=== PATIENT | female | born 1940 | race Caucasian/White ===

== ENCOUNTER 2016-12-07 18:39 | Emergency (ER) | payer OTHER, MEDICARE ==
[~2016-12-07] VITALS: Ht 152.4 cm; Wt 50.3 kg
[~2016-12-07 18:39] MED LIST: ANTIBIOTIC O500 U/GM TOP; ASPIRIN CHILDRE81 MG PO; BENEFIBER1 POW PO; BISCOLAX10 MG PR; CALCIUM + D 6001 TAB PO; CEPHALEXIN500 MG PO; DEPAKOTE SPRIN125 M1 PO; ENSURE PLUS 24240 ML PO; LEVOTHYROXINE0.1 M1 PO; MAPAP ARTHRITI650 MG PO; MULTIVITAMIN1 TAB PO; OLANZAPINE2.5 MG PO; OLANZAPINE5 MG PO; OMEPRAZOLE20 M2 PO; PRAVACHOL40 M1 PO; PROPRANOLOL HCL40 M1 PO; SENNA CONCENTR8.6 MG PO; VITAMIN D32000 UNIT PO; [UNRECOGNIZED DRUG - OTHER] PO; [UNRECOGNIZED DRUG - REMARK] TOP
[2016-12-07] MEDS ORDERED: PAIN RELIEF325 MG PO (20:06)
[2016-12-07] MEDS ORDERED: MULTI-DAY VITA1 EACH PO (20:06)
[2016-12-07] MEDS ORDERED: ASPIRIN EC81 M1 PO (20:07)
[2016-12-07] MEDS ORDERED: ANTACID LIQUID355 ML PO (20:07)
[2016-12-07] MEDS ORDERED: BACITRACIN28.4 GM TOP (20:08)
[2016-12-07] MEDS ORDERED: BENEFIBER144 GM PO (20:08)
[2016-12-07] MEDS ORDERED: DEPAKOTE SPRIN125 M1 PO (20:09)
[2016-12-07] MEDS ORDERED: LEVOTHYROXINE100 MC1 PO (20:09)
[2016-12-07] MEDS ORDERED: MILK OF MA400 MG/52 PO (20:10)
[2016-12-07] MEDS ORDERED: VITAMIN D2000 UNI1 PO (20:12)
[2016-12-07] MEDS ORDERED: ZEASORB POWDER71 GM TOP (20:12)
--- NOTE | 2016-12-07 20:37 | ED GENERAL ADULT ---
See Addendum History of Present Illness General Chief Complaint: General Adult Stated Complaint: PT HIGH BLOOD PRESSURE, FALLING Source: patient Exam Limitations: no limitations Vital Signs & Intake/Output Vital Signs & Intake/Output Vital Signs Date Time Temp Pulse Resp B/P B/P Pulse O2 O2 Flow FiO2 Mean Ox Delivery Rate 12/08 206 97.9 74 18 151/69 99 Room Air 12/08 0205 97.9 74 20 151/69 12/076 138/80 12/07 2058 97.5 83 18 188/86 97 Room Air 12/07 1843 98.0 87 20 158/88 98 Room Air ED Intake and Output 12/08 0000 12/07 1200 Intake Total Output Total Balance Patient 111 lb Weight Weight Estimated Measurement Method Allergies Coded Allergies: Quinolones (UNKNOWN 02/03/16) benztropine (UNKNOWN 02/03/16) haloperidol (From HALDOL) (UNKNOWN 02/03/16) Reconcile Medications Acetaminophen (Pain Relief) 325 MG TABLET 2 TAB PO Q6H PRN PAIN/TEMP>100.5 ( Reported) Aspirin (Ecotrin*) 81 MG TABLET.DR 1 TAB PO DAILY HEART/BLOOD (Reported) Bacitracin 500 UNIT/GRAM OINT...G. 1 CANDY TOP PRN SKIN (Reported) apply to affected area(s) Cholecalciferol (Vitamin D3) (Vitamin D3) 2,000 UNIT CAPSULE 1 CAP PO DAILY SUPPLEMENT (Reported) Cholecalciferol (Vitamin D3) (Vitamin D) 2,000 UNIT TABLET 1 TAB PO DAILY SUPPLEMENT (Reported) Divalproex Sodium (Depakote Sprinkle) 125 MG CAP.SPRINK 4 CAP PO BID UNKNOWN (Reported) Levothyroxine Sodium 100 MCG TABLET 1 TAB PO DAILY THYROID (Reported) Mag Hydrox/Al Hydrox/Simeth (Antacid Liquid) (Unknown Strength) ORAL.SUSP ( Unknown Dose) PO Q4H PRN GI UPSET (Reported) Magnesium Hydroxide (Milk Of Magnesia) 400 MG/5 ML ORAL.SUSP 30 ML PO PRN GI (Reported) Multivitamin (Multi-Day Vitamins) 1 EACH TABLET 1 TAB PO DAILY SUPPLEMENT ( Reported) Nitrofurantoin Monohyd/M-Cryst (Macrobid 100 MG Capsule) 100 MG CAPSULE 1 CAP PO BID URINE INFECTION with food Omeprazole 20 MG CAPSULE.DR 1 CAP PO QAM GI (Reported) Pravastatin Sodium (Pravachol) 40 MG TABLET 1 TAB PO 1500 CHOLESTEROL ( Reported) Propranolol HCl 40 MG TABLET 1 TAB PO BID BP (Reported) Sennosides (Senna Concentrate) 8.6 MG TABLET 2 TAB PO DAILY GI (Reported) Talc/Cellulos/Chloroxy/Aldioxa (Zeasorb Powder) (Unknown Strength) POWDER 1 CANDY TOP BID FEET (Reported) Wheat Dextrin (Benefiber) (Unknown Strength) POWDER (Unknown Dose) PO AD GI ( Reported) Triage Note: 76 YO FEMALE TO TRIAGE FROM SENIOR CARE WITH MANAGER OF EMPLOYEE RELATIONS. PT HX OF MR AND NONVERBAL AT BASELINE. PER CONSULTATION FORM THAT WAS BROUGHT WITH PT IT WAS HYPERTENSIVE AND CLAMMY AND COLLPASED 3 TIMES TODAY WHILE WALKING. STAFF MEMBER WITH PT "JUST CLOCKED ON" SO IF UNSURE OF WHY PT WAS BROUGHT IN. BP 158/88 IN TRIAGE. STAFF MEMBER ALSO STATES "THEY THINK SHE MIGHT HAVE A UTI" PT APPEARS COMOFRTBLE AND NOT IN ANY PAIN AT THIS TIME. Triage Nurses Notes Reviewed? yes Onset: Gradual Duration: day(s): Timing: single episode today Injury Environment: home Severity: mild Modifying Factors: Improves With: rest. 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 Her aide states, "The nurse thinks it might be a urinary tract infection." She has no cough, phlegm, diarrhea, nauesa, vomiting. She is otherwise well. Past History Travel History Traveled to [place] past 21 day No Medical History Any Pertinent Medical History? see below for history Neurological: PROFOUND DEVELOPMENTALLY DISABLED EENT: cataracts, glaucoma Cardiovascular: hypertension, hyperlipidemia Respiratory: NONE Gastrointestinal: NONE Hepatic: NONE Renal: NONE Musculoskeletal: NONE Psychiatric: schizo affective disorder Endocrine: NONE Blood Disorders: NONE Surgical History Surgical History: unobtainable Psychosocial History What is your primary language Swedish Tobacco Use: Never used Family History Hx Contributory? No Review of Systems Review of Systems Constitutional: Reports: no symptoms. EENTM: Reports: no symptoms. Respiratory: Reports: no symptoms. Cardiovascular: Reports: no symptoms. GI: Reports: no symptoms. Genitourinary: Reports: no symptoms. Musculoskeletal: Reports: no symptoms. Skin: Reports: no symptoms. Neurological/Psychological: Reports: no symptoms. Hematologic/Endocrine: Reports: no symptoms. Immunologic/Allergic: Reports: no symptoms. All Other Systems: Reviewed and Negative Physical Exam Physical Exam General Appearance: well developed/nourished, no apparent distress Head: atraumatic, normal appearance Eyes: Bilateral: normal appearance, PERRL, EOMI. Ears, Nose, Throat: normal pharynx, normal ENT inspection Neck: normal inspection, supple, full range of motion Respiratory: normal breath sounds, chest non-tender, no respiratory distress, quiet respiration, lungs clear Cardiovascular: regular rate/rhythm Gastrointestinal: normal bowel sounds, soft, non-tender, no organomegaly Back: normal inspection Extremities: normal inspection, normal capillary refill, normal range of motion, no edema Neurologic/Psych: no motor/sensory deficits, awake, alert Skin: intact, normal color, warm/dry Core Measures ACS in differential dx? No CVA/TIA Diagnosis: No Severe Sepsis Present: No Septic Shock Present: No Progress Differential Diagnoses I considered the following diagnoses in my evaluation of the patient: pneumonia, bronchitis, uti, dehydration vs other. Plan of Care: Orders Procedure Date/time Status Regular Diet 12/08 B Active EKG 12/08 040 Active Saline Lock 12/[address] in observation 12/07 225 Active Misc Message 12/07 225 Active ED Holding Orders 12/07 225 Active Patient Data 12/07 225 Active Vital Signs 12/07 225 Active Code Status 12/07 225 Active Add-on Test (ER Only) 12/08 2247 Active BASIC METABOLIC PANEL 12/07 224 Complete CULTURE,URINE 12/07 2140 Active DEPAKOTE LEVEL 12/07 2109 Complete URINALYSIS 12/08 2047 Complete TROPONIN LEVEL 12/08 2047 Complete COMPREHENSIVE METABOLIC PANEL 12/08 2047 Complete CBC WITHOUT DIFFERENTIAL 12/08 2047 Complete Current Medications Sig/Loreta Start time Last Medication Dose Stop Time Status Admin Divalproex Sodium 500 MG BID 12/08 005 UNVr 12/08 (Depakote) 0205 Propranolol HCl 40 MG BID 12/08 005 UNVr 12/08 (Inderal 40 MG 0205 Tablet) Nitrofurantoin 50 MG Q6 12/07 2359 UNVr 12/07 (Macrodantin 50MG 2349 Cap) Laboratory Tests 12/08/16 0050: Anion Gap 6, Estimated GFR > 60, BUN/Creatinine Ratio 30.0 H, Glucose 75, Calcium 7.6 L 12/07/162139: Urine Color YEL, Urine Clarity CLEAR, Urine pH 6.5, Ur Specific [place] 1.010, Urine Protein NEG, Urine Ketones TRACE H, Urine Nitrite NEG, Urine Bilirubin NEG, Urine Urobilinogen 0.2, Ur Leukocyte Esterase TRACE H, Ur Microscopic SEDIMENT EXAMINED, Urine RBC 1-3, Urine WBC 5-10 H, Ur Epithelial Cells FEW, Urine Hemoglobin NEG, Urine Glucose NEG 12/07/162109: Anion Gap 7, Estimated GFR > 60, BUN/Creatinine Ratio 38.0 H, Glucose 87, Calcium 9.1, Total Bilirubin 0.5, AST 26, ALT 31, Alkaline Phosphatase 54, Troponin I < 0.01, Total Protein 6.6, Albumin 4.0, Globulin 2.6, Albumin/ Globulin Ratio 1.5, CBC w Diff NO MAN DIFF REQ, RBC 4.76, MCV 87.4, MCH 29.2, RDW 13.7, MPV 8.4, Gran % 46.7, Lymphocytes % 38.9, Monocytes % 13.2 H, Eosinophils % 0.9, Basophils % 0.3, Absolute Granulocytes 5.7, Absolute Lymphocytes 4.7 H, Absolute Monocytes 1.6 H, Absolute Eosinophils 0.1, Absolute Basophils 0, PUBS MCHC 33.4, Valproic Acid 84.4 Microbiology 12/08 2139 URINE ROUT: Urine Culture - RECD Initial ED EKG: normal axis, normal intervals, normal p-waves, normal QRS complex, normal sinus rhythm Departure Departure Disposition: HOME OR SELF CARE Condition: Stable Clinical Impression Primary Impression: Hyponatremia Secondary Impressions: Dehydration, UTI (urinary tract infection) Referrals: EVERETTE ATWOOD MD (PCP/Family) Departure Forms: Customer Survey General Discharge Information Prescriptions: Current Visit Scripts Nitrofurantoin Monohyd/M-Cryst (Macrobid 100 MG Capsule) 1 CAP PO BID #10 CAP with food Critical Care Note Critical Care Note Critical Care Time: non-applicable ED Attending Observation Initial Observation Note: I have seen and personally examined EMILY PANTOJA on 12/07/16 at 2308. I agree with the current emergency department documentation. The disposition (admission or discharge) is uncertain at this time, she needs a period of observation for the following reason(s): pt has hyponatremia with a sodium of 124. pt has history of decreased oral intake. WIll give 2 liters iv fluid and re-evaluate, recheck lytes. Also will start macrobid for possible mild uti. The ED Nurse caring for this patient has been personally informed as to what the patient is being observed for. Observation Discharge: I have reevaluated EMILY PANTOJA on 12/08/16 at 0400. The patient is: ([x]): Stable for discharge (): To be admitted to Nursing Floor (): To be placed in Observation on Nursing Floor (): For transfer to other facility The patient was being observed for hyponatremia/dehydration.... pt received 2 liters NS. As a result of that observation, I have determined her sodium improved from 124 to 131. Pt safe for discharge with close follow up by PMD. discussed increasing oral intake. She will also complete course of macrobid for mild UTI.
[2016-12-07 21:19] LABS: ABSOLUTE BASOPHIL COUNT 0 /CUMM (0.0-0.2); ABSOLUTE EOSINOPHIL COUNT 0.1 /CUMM (0.0-0.7); ABSOLUTE GRANULOCYTE CT 5.7 /CUMM (1.4-6.5); ABSOLUTE LYMPH COUNT 4.7 /CUMM (1.2-3.4); ABSOLUTE MONOCYTE COUNT 1.6 /CUMM (0.10-0.60); BASOPHIL % 0.3 % (0.0-2.0); EOSINOPHIL % 0.9 % (0-5); HEMATOCRIT 41.7 % (37-47); MEAN CORPUSCULAR HGB 29.2 PG (27.0-31.0); MEAN CORPUSCULAR HGB CONC 33.4 G/DL (33.0-37.0); MEAN CORPUSCULAR VOLUME 87.4 FL (81.0-99.0); MEAN PLATELET VOLUME 8.4 FL (7.4-10.4); PLATELET COUNT 222 /CUMM (130-400); RBC DISTRIBUTION WIDTH 13.7 % (11.5-14.5); RED BLOOD CELL CT 4.76 /CUMM (4.20-5.40); WHITE BLOOD CELL COUNT 12.2 /CUMM (4.8-10.8)
[2016-12-07 21:20] LABS: GRANULOCYTE % 46.7 % (42.2-75.2)
[2016-12-08] MEDS ORDERED: MACROBID 100 M100 MG PO ×2 (01:31→05:24)
[2016-12-08 04:30] VITALS: BP 150/80
== END 2016-12-08 04:30 ==
LOC: ERH 18:39
PROVIDERS: Pediatrics
DX: E87.1 Hypo-osmolality and hyponatremia (principal); E86.0 Dehydration; N39.0 Urinary tract infection, site not specified
CPT/HCPCS: 81001; 87086; 93005; 93010; 96360; 96361

== ENCOUNTER 2016-12-25 16:28 | Emergency (ER) | payer OTHER, MEDICARE ==
[~2016-12-25] VITALS: Ht 170.2 cm; Wt 63.5 kg
[~2016-12-25 16:28] MED LIST changes: +ANTACID LIQUID355 ML PO; +ASPIRIN EC81 M1 PO; +BACITRACIN28.4 GM TOP; +BENEFIBER144 GM PO; +LEVOTHYROXINE100 MC1 PO; +MACROBID 100 M100 MG PO; +MILK OF MA400 MG/52 PO; +MULTI-DAY VITA1 EACH PO; +PAIN RELIEF325 MG PO; +VITAMIN D2000 UNI1 PO; +ZEASORB POWDER71 GM TOP
--- NOTE | 2016-12-25 16:55 | ED MVC/FALL/TRAUMA COMPLAINT ---
History of Present Illness General Chief Complaint: Fall Stated Complaint: FALL Source: EMS, friend Exam Limitations: unable to give history, clinical condition Vital Signs & Intake/Output Vital Signs & Intake/Output Vital Signs Date Time Temp Pulse Resp B/P B/P Pulse O2 O2 Flow FiO2 Mean Ox Delivery Rate 12/25 1935 97.0 88 20 178/88 98 Room Air 12/25 1638 98.6 80 20 196/82 95 Room Air Allergies Coded Allergies: Quinolones (UNKNOWN 02/03/16) benztropine (UNKNOWN 02/03/16) haloperidol (From HALDOL) (UNKNOWN 02/03/16) Reconcile Medications Acetaminophen (Pain Relief) 325 MG TABLET 2 TAB PO Q6H PRN PAIN/TEMP>100.5 ( Reported) Aspirin (Ecotrin*) 81 MG TABLET.DR 1 TAB PO DAILY HEART/BLOOD (Reported) Bacitracin 500 UNIT/GRAM OINT...G. 1 CANDY TOP PRN SKIN (Reported) apply to affected area(s) Cholecalciferol (Vitamin D3) (Vitamin D3) 2,000 UNIT CAPSULE 1 CAP PO DAILY SUPPLEMENT (Reported) Divalproex Sodium (Depakote Sprinkle) 125 MG CAP.SPRINK 375 MG PO DAILY UNKNOWN (Reported) Levothyroxine Sodium 100 MCG TABLET 1 TAB PO DAILY THYROID (Reported) Mag Hydrox/Al Hydrox/Simeth (Antacid Liquid) (Unknown Strength) ORAL.SUSP 30 ML PO Q4H PRN GI UPSET (Reported) Magnesium Hydroxide (Milk Of Magnesia) 400 MG/5 ML ORAL.SUSP 30 ML PO PRN GI (Reported) Multivitamin (Multi-Day Vitamins) 1 EACH TABLET 1 TAB PO DAILY SUPPLEMENT ( Reported) Omeprazole 20 MG CAPSULE.DR 1 CAP PO QAM GI (Reported) Pravastatin Sodium (Pravachol) 40 MG TABLET 1 TAB PO 1500 CHOLESTEROL ( Reported) Propranolol HCl 40 MG TABLET 1 TAB PO BID BP (Reported) Sennosides (Senna Concentrate) 8.6 MG TABLET 2 TAB PO DAILY GI (Reported) Sodium Chloride/Nahco3/KCl/Peg (Trilyte With Flavor Packets) 420 GRAM SOLN.RECON 1 BOT PO AD PREP FOR COLONOSCOPY (Reported) Talc/Cellulos/Chloroxy/Aldioxa (Zeasorb Powder) (Unknown Strength) POWDER 1 CANDY TOP BID FEET (Reported) Wheat Dextrin (Benefiber) (Unknown Strength) POWDER (Unknown Dose) PO AD GI ( Reported) Triage Note: BIBA FROM HALF-WAY. PER EMS PT HAS A WITNESSED FALL, TRIPPING ON WHEEL CHAIR RAMP, NO LOC. PT NON VERBAL IS BASELINE. C-COLLAR IN PLACE, MINIMAL BLEEDING FROM BACK OF HEAD. VS BY EMS GLUCOSE 97, 186/90 95%RA, P=78. Triage Nurses Notes Reviewed? yes Unable To Obtain Hx Due To: PT NON-VERBAL, HX FROM CAREGIVER Onset: Abrupt Duration: hour(s): (2), constant, continues in ED Timing: single episode today Severity: mild, moderate Injuries/Fall Location: head Method of Injury: fall Loss of Consciousness: no loss of consciousness No Modifying Factors: none LMP (ages 10-50): post menopausal : No Patient currently breastfeeds: No HPI: 76-year-old female history of profound developmental delay, schizoaffective disorder and hypertension since for evaluation after fall. Patient is nonverbal at baseline. Patient's caregiver reports that patient was exiting a wheelchair van and tripped over the wheelchair ramp proximately 1 foot off the ground causing her to fall and hit her head. The fall was witnessed and there was no loss of consciousness. Patient was kept on the Ground and Placed in a C-Collar When EMS Arrived. There Was Some Bleeding from the Head but No Other Known Injuries. Caregiver Reports That Patient's Mental Status Is at Baseline. She Takes Aspirin 81 Mg Once Daily for CAD Prophylaxis. There has been no loss of consciousness, change in mental status, vomiting. She has not been given anything for pain. (TAY CHARLES PA-C) Past History Travel History Traveled to [place] past 21 day No Medical History Any Pertinent Medical History? see below for history Neurological: PROFOUND DEVELOPMENTALLY DISABLED EENT: cataracts, glaucoma Cardiovascular: hypertension, hyperlipidemia Respiratory: NONE Gastrointestinal: NONE Hepatic: NONE Renal: NONE Musculoskeletal: NONE Psychiatric: schizo affective disorder Endocrine: NONE Blood Disorders: NONE Surgical History Surgical History: unobtainable Psychosocial History What is your primary language Azeri Tobacco Use: Never used Family History Hx Contributory? Yes (TAY CHARLES PA-C) Review of Systems Review of Systems Constitutional: Reports: no symptoms. Eyes: Reports: no symptoms. Ears, Nose, Throat, Mouth: Reports: no symptoms. Respiratory: Reports: no symptoms. Cardiovascular: Reports: no symptoms. Gastrointestinal/Abdominal: Reports: no symptoms. Genitourinary: Reports: no symptoms. Musculoskeletal: Reports: no symptoms. Skin: Reports: no symptoms. Neurological/Psychological: Reports: see HPI, headache. All Other Systems: Reviewed and Negative Comments Review of systems: See HPI, All other systems negative. Constitutional, no chills fever or weight loss HEENT: No visual changes no sore throat no congestion Cardiovascular: No chest pain ,palpitation , orthopnea or ankle swelling Skin, no jaundice no rashes Respiratory: No dyspnea cough sputum or hemoptysis GI: No nausea no vomiting : No dysuria No hematuria Muscle skeletal: no back pain, no neck pain, Neurologic: No numbness no confusion Psych: No stress anxiety or depression,. Heme/endocrine: No bruising no bleeding no polyuria or polydipsia Immunology: No splenectomy or history of AIDS (ARACELI BECK,TAY) Physical Exam Physical Exam General Appearance: well developed/nourished, alert, awake, anxious, mild distress Head: active bleeding (0.5cm laceration to occiptal), evidence of injury Eyes: Bilateral: normal appearance, PERRL, EOMI, normal inspection. Ears, Nose, Throat, Mouth: hearing grossly normal, moist mucous membrane Neck: normal inspection, normal alignment, limited range of motion (collar in place) Respiratory: normal breath sounds, chest non-tender, no respiratory distress Cardiovascular: regular rate/rhythm, normal peripheral pulses Peripheral Pulses: 2+ dorsalis pedis (R), 2+ dorsalis pedis (L) Gastrointestinal: normal bowel sounds, soft, non-tender, no organomegaly Back: normal inspection, normal range of motion, no vertebral tenderness Extremities: normal range of motion Neurologic/Psych: no motor/sensory deficits, awake, alert, normal mood/affect Skin: intact, normal color, warm/dry Comments: There is approximately 0.5 cm superficial laceration of the rt parietal scalp. small amount of active bleeding is present. No evidence of depressed skull fracture. Core Measures ACS in differential dx? No Severe Sepsis Present: No Septic Shock Present: No (ARACELI BECK,TAY) Progress Differential Diagnosis: C/T/L spine injury, ICH, head lac, concussion Plan of Care: Orders Procedure Date/time Status CT NECK WO IV CONTRAST 12/[address] HEAD WO IV CONTRAST 12/25 170 Active Current Medications Sig/Loreta Start time Last Medication Dose Stop Time Status Admin Acetaminophen 650 MG ONCE ONE 12/25 1714 AC (Tylenol) 12/26 1715 Due to patient hitting her head after fall patient will have a CT scan of her head and c-spine to rule out any injury. Patient's mental status is at baseline currently. She Does have a a small head laceration that will be approximated with glue after she is cleared by the CT scan. No evidence of any other injuries. She was given 650 of Tylenol by mouth for pain control. There is a 0.5 cm superficial laceration located on the right side of the parietal scalp. 6:42 PM: CT scan of the head and cervical spine is negative for any acute findings. Head laceration was closed with glue. She will be discharged home with Tylenol as needed for pain and wound care instructions. Educated caregiver about head injuries and concussions. Discussed with Dr. Ortega and she agrees with the plan. (ARACELI BCEK,TAY) Comments: PATIENT: EMILY PANTOJA PRESENT AGE: 76 PATIENT ACCOUNT NO: [id number] : 40 LOCATION: [facility] ORDERING PHYSICIAN: TAY CHARLES PA-C SERVICE DATE: 12/25/16 EXAM TYPE: CAT - CT CERV SPINE WO IV CONTRAST; CT HEAD WO IV CONTRAST CT HEAD WITHOUT IV CONTRAST CT CERVICAL SPINE WITHOUT IV CONTRAST INDICATION: Head trauma/laceration and neck pain. COMPARISON: Head CT 02/03/2016. TECHNIQUE: Multidetector CT acquisitions of the head and cervical spine were obtained without IV contrast. Multiplanar reformats were acquired and utilized for image interpretation. FINDINGS: HEAD: Redemonstrated global cerebral volume loss and chronic microangiopathy. There is no intracranial hemorrhage, hydrocephalus, extra-axial surface collection, midline shift, or other herniation pattern. Hernandez to white matter differentiation is diffusely maintained without evidence of an evolved acute territorial infarct. The basilar cisterns are preserved. Right parietal scalp laceration. No acute osseous abnormality. 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 The paranasal sinuses and the mastoid air cells are well-aerated. CERVICAL SPINE: There is slight degenerative anterolisthesis of C5 on C6 and C6 on C7. Alignment is otherwise maintained. There is multilevel facet arthropathy. There is no acute fracture and there is no acute subluxation. The craniocervical and atlantoaxial articulations are normal. There is no prevertebral soft tissue swelling. No significant soft tissue abnormality within the neck. The visualized lung apices are clear. IMPRESSION: 1. Right parietal scalp laceration. No acute intracranial abnormality. Global cerebral volume loss and mild chronic microangiopathy. 2. No acute osseous abnormality within the cervical spine. Cervical spondylosis. DICTATED BY: CARLOS ALBERTO SOLIMAN MD DATE/TIME DICTATED:12/25/161822 [employer]:JOHN DATE/TIME TRANSCRIBED:12/25/161822 CONFIDENTIAL, DO NOT COPY WITHOUT APPROPRIATE AUTHORIZATION. (ARACELI BECK,TAY) Departure Departure Disposition: HOME OR SELF CARE Condition: Stable Clinical Impression Primary Impression: Head trauma Qualifiers: Encounter type: initial encounter Qualified Code: S09.90XA - Unspecified injury of head, initial encounter Secondary Impressions: Laceration of head Qualifiers: Encounter type: initial encounter Location of open wound of head: scalp Foreign body presence: without foreign body Qualified Code: S01.01XA - Laceration without foreign body of scalp, initial encounter Referrals: EVERETTE ATWOOD MD (PCP/Family) Additional Instructions: Rest. Keep The scalp clean and dry. Avoid washing the hair for at least 3-4 days. tylenol 1000 mg every 6 hours needed for pain. Follow-up appointment with her primary care doctor this week. Return to the emergency department with any concerns. See attached head injury info. Please go over all results of today's visit with your primary care doctor. Contact your primary care doctor to let them know you were here in the emergency room. There may be nonspecific findings which may not be related to your visit today here in the emergency room but may require further evaluation and chronic monitoring by your primary care doctor. If you had a laceration today the chance of foreign body always remains. You should follow-up with your primary care doctor for recheck in 3-5 days for a wound check. If you had an x-ray done there is a chance that a fracture could have been missed on initial read and you should follow-up with your primary care doctor for repeat x-rays if symptoms persist. If your blood pressure was elevated here in the emergency room please have rechecked by her primary care doctor within the next 48 hours by your primary care doctor. If you were prescribed a narcotic here in the emergency room or any type of controlled substances you're not allowed to drive while taking this medication or operate any type of heavy machinery. Narcotics can make you feel lightheaded dizziness nausea and can cause constipation. You may need to roll picker a stool softener. Thank you for choosing [facility] emergency room. Please return to the emergency room immediately if you have any other concerns worsening of symptoms. Departure Forms: Customer Survey General Discharge Information (ARACELI BECK,TAY) PA/DESK CLERK Co-Sign Statement Statement: ED Attending supervision documentation- [X] I saw and evaluated the patient. I have also reviewed all the pertinent lab results and diagnostic results. I agree with the findings and the plan of care as documented in the PA's/DESK CLERK's documentation. [X] I have reviewed the ED Record and agree with the PA's/DESK CLERK's documentation. [] Additions or exceptions (if any) to the PAs/DESK CLERK's note and plan are summarized below: [] (MARIANELA SKAGGS,NING)
[2016-12-25] MEDS ORDERED: [UNRECOGNIZED DRUG - MIXTURE] PO (17:02)
--- NOTE | 2016-12-25 18:36 | CT SCAN REPORT ---
CT HEAD WITHOUT IV CONTRAST CT CERVICAL SPINE WITHOUT IV CONTRAST INDICATION: Head trauma/laceration and neck pain. COMPARISON: Head CT 02/03/2016. TECHNIQUE: Multidetector CT acquisitions of the head and cervical spine were obtained without IV contrast. Multiplanar reformats were acquired and utilized for image interpretation. FINDINGS: HEAD: Redemonstrated global cerebral volume loss and chronic microangiopathy. There is no intracranial hemorrhage, hydrocephalus, extra-axial surface collection, midline shift, or other herniation pattern. Hernandez to white matter differentiation is diffusely maintained without evidence of an evolved acute territorial infarct. The basilar cisterns are preserved. Right parietal scalp laceration. No acute osseous abnormality. 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 The paranasal sinuses and the mastoid air cells are well-aerated. CERVICAL SPINE: There is slight degenerative anterolisthesis of C5 on C6 and C6 on C7. Alignment is otherwise maintained. There is multilevel facet arthropathy. There is no acute fracture and there is no acute subluxation. The craniocervical and atlantoaxial articulations are normal. There is no prevertebral soft tissue swelling. No significant soft tissue abnormality within the neck. The visualized lung apices are clear. IMPRESSION: 1. Right parietal scalp laceration. No acute intracranial abnormality. Global cerebral volume loss and mild chronic microangiopathy. 2. No acute osseous abnormality within the cervical spine. Cervical spondylosis.
[2016-12-25 19:35] VITALS: BP 178/88
== END 2016-12-25 19:38 ==
LOC: ERH 16:28
DX: S09.90XA Unspecified injury of head, initial encounter (principal); S01.91XA Laceration without foreign body of unspecified part of head, initial encounter; W18.09XA Striking against other object with subsequent fall, initial encounter; Y93.01 Activity, walking, marching and hiking; Y92.9 Unspecified place or not applicable